=== PATIENT | female | born 1990 | race African-American/Black ===

== ENCOUNTER 2024-11-15 08:24 | Emergency (ER) | payer BC, MEDICAID ==
[~2024-11-15] VITALS: Ht 170.2 cm; Wt 68.0 kg
[2024-11-15 08:35] VITALS: BP 131/95; PULSE 97; RESP 18; TEMP 98.1; O2SAT 99
[2024-11-15] MEDS ORDERED: ACET-3385 PO (08:45)
[2024-11-15] MEDS ORDERED: IBUP-1492 PO (08:45)
[2024-11-15] MEDS ORDERED: AMOX-457 PO (08:45)
[2024-11-15] MEDS: IBUPROFEN 600 MG TABLET PO ONE (08:51)
[2024-11-15] MEDS: AMOX TR/POT CLAV 875 MG/125 MG TABLET PO ONE (08:51)
[2024-11-15] MEDS: ACETAMINOPHEN 500 MG TABLET PO ONE (08:52)
== END 2024-11-15 09:05 | disposition home or self-care (01) ==
LOC: EMS 08:49
DX: K08.89 Other specified disorders of teeth and supporting structures (principal); R22.0 Localized swelling, mass and lump, head; F12.90 Cannabis use, unspecified, uncomplicated; F17.210 Nicotine dependence, cigarettes, uncomplicated
CPT/HCPCS: 99284; Z7502; Z7610